=== PATIENT | female | born 1950 | race Caucasian/White ===

== ENCOUNTER 2016-06-11 17:45 | Emergency (ER) | payer BC ==
[~2016-06-11] VITALS: Ht 160 cm; Wt 55.7 kg
[2016-06-11 17:49] VITALS: TEMP 36.5; Ht 160 cm; Wt 55.7 kg
[2016-06-11] MEDS ORDERED: CYAN10005 PO (18:04)
[2016-06-11] MEDS ORDERED: VITACAP37 PO (18:05)
[2016-06-11] MEDS ORDERED: CHOL1000 PO (18:06)
[2016-06-11] MEDS ORDERED: ZINC100T2 PO (18:08)
[2016-06-11] MEDS ORDERED: BIOF500T PO (18:09)
[2016-06-11] MEDS ORDERED: [UNRECOGNIZED DRUG - CODE] PO (18:10)
[2016-06-11] MEDS ORDERED: GARL1CAP6 PO (18:11)
[2016-06-11] MEDS ORDERED: MULT-188 PO (18:12)
[2016-06-11] MEDS ORDERED: BROM100T PO (18:13)
[2016-06-11] MEDS ORDERED: ASPI81TA28 PO (18:14)
[2016-06-11] MEDS ORDERED: OMEG10007 PO (18:15)
[2016-06-11] MEDS ORDERED: CALC500C70 PO (18:16)
[2016-06-11] MEDS ORDERED: MAGN250T8 PO (18:17)
--- NOTE | 2016-06-11 18:22 | DIAGNOSTIC IMAGING REPORT ---
RIGHT WRIST 5 VIEWS HISTORY: Right wrist pain after fall. COMPARISON: None. FINDINGS: The bones are osteopenic. Soft tissue swelling within the right wrist. There is a slightly comminuted and impacted distal right radius fracture which demonstrates dorsal angulation. The fracture demonstrates intra-articular extension. No radiopaque foreign bodies. IMPRESSION: Slightly comminuted and impacted distal right radius fracture which demonstrates dorsal angulation. Electronically signed by: Jorge Doran M.D. 06/11/2016 6:20 PM
--- NOTE | 2016-06-11 18:54 | EMERGENCY ROOM VISIT NOTE ---
ED Visit Note First contact with patient: 17:54 Chief Complaint: RIGHT Wrist Pain/Injury History of Present Illness: Patient is a 65-year-old female who presents to the emergency Department this evening for evaluation of her RIGHT wrist pain/ injury. She reports that she slipped on a wet surface this afternoon and landed on her outstretched RIGHT hand. She reports immediate pain and deformity to the RIGHT wrist. She has applied ice to the area. She is utilizing sdaw-faf-[id number] medications to this point. She rates her discomfort a 0/10. The patient denies any previous history of fracture or injury to the affected wrist. She denies any numbness or tingling into the distal cavity. The patient denies any associated finger pain, hand pain, forearm pain, or elbow pain. Medications: No current medications. Allergies: No known allergies. PMH: No pertinent past medical history. SHx: Patient is a 65-year-old female who lives locally. ROS: All pertinent positive and negative review of systems are appropriately documented in the History of Present Illness. Physical Exam: VITAL SIGNS - Vital signs and nursing notes were reviewed. GENERAL - 65-year-old female appearing her stated age and in noticeable discomfort throughout the exam. MUSCULOSKELETAL - Active ROM of the RIGHT wrist was limited in all directions. Moderate edema noted overlying the distal radius. No palpable deformities. Moderate tenderness over the radial styloid process. Mild tenderness with squeezing the forearm. No tenderness extending into the carpals. No point- tenderness over the anatomic snuffbox. Moderate pain elicited with supination and pronation of the forearm. NEUROLOGIC - SENSORY: Spinothalamic tract was found to be intact with ability to discriminate sharp versus dull sensation at the level of the RIGHT elbow down to the fingertips. No sensory deficits of the dorsal column were appreciated utilizing light touch for evaluation. VASCULAR - Capillary refill was brisk. +3/5 radial pulse palpated. IMAGING: RIGHT WRIST 5 VIEWS HISTORY: Right wrist pain after fall. COMPARISON: None. FINDINGS: The bones are osteopenic. Soft tissue swelling within the right wrist. There is a slightly comminuted and impacted distal right radius fracture which demonstrates dorsal angulation. The fracture demonstrates intra-articular extension. No radiopaque foreign bodies. IMPRESSION: Slightly comminuted and impacted distal right radius fracture which demonstrates dorsal angulation. ED Course: Patient was seen and evaluated by myself. Patient was provided an ice pack for comfort. Patient decline anything for their complaint of pain. X-rays were obtained of the affected wrist. Imaging results as above. Images were discussed and reviewed with the patient who acknowledges understanding. Was placed in an Ortho-Glass splint for comfort. She was provided an arm sling for comfort as well. Splint was applied by the emergency department artificial breeding technician under my direct supervision. The patient remained neurovascularly intact pre-and post- splint to. The patient was educated on the need for close follow-up with orthopedic surgery for definitive management. The patient was educated on worrisome symptoms for return visit to the emergency department. Patient discharged home in good condition. In the evaluation and treatment of this patient, the following differential diagnoses were considered: Wrist Sprain, Wrist Fracture, Wrist Dislocation, Scapholunate Dissociation, Carpal Fracture, Metacarpal Fracture, Radial Styloid Process Fracture, Ulnar Styloid Process Fracture, or Carpal Tunnel Syndrome. Impression: RIGHT Distal Radius Fracture, Fall Discharge Instructions: You have been treated in the Emergency Department for your RIGHT Distal Radius Fracture. For pain control, you can use the following wugx-uyy-vvmvlzf medicines (if >12 yo): - Regular strength (325mg/tab) Tylenol (acetaminophen) 2 tabs every 4-6 hours as needed. Do not exceed 12 tablets in a 24 hour period. Avoid taking more than 4 grams (4000 mg) of Tylenol per day. This includes any other sources of acetaminophen you may take on a regular basis. - Regular strength (200 mg/tab) Advil (ibuprofen) 1-2 tabs every 4-6 hours as needed. Do not exceed a dose of 3200 mg per day. If this is a recent injury (<24 hrs), ice can be applied to the area of pain for the first 3 days to help decrease pain and inflammation. You have been provided the number for an Orthopaedic Surgeon. You should call this number as soon as possible to establish a follow-up visit from today's Emergency Department visit. Keep the brace in place until evaluated by Orthopedics. Return to the Emergency Department if your current symptoms worsen despite treatment course outlined above, or if you develop any of the following symptoms : intractable pain despite aforementioned treatment course or new onset of numbness or tingling of the fingers. Current/Historical Medications Scheduled Aspirin (Aspirin Ec), 81 MG PO DAILY Bioflavonoid Products (Natalie-C), 1 TAB PO DAILY Bromelains (Bromelain), 1 TAB PO DAILY Calcium/Vitamin D (Os-Tate 500 Plus D), 3 TAB PO DAILY Cholecalciferol (Vitamin D3), 5,000 PO DAILY Cyanocobalamin (Vitamin B-12), 5,000 MCG PO DAILY Feverfew (Tanacetum Parthenium (Feverfew), 380 MG PO DAILY Fish Oil ([place]-3), 2 CAP PO DAILY Garlic (Garlic), Unknown Dose PO DAILY Magnesium Oxide (Mg Supplement (Magnesium), 250 MG PO DAILY Multiple Vitamins W/ Minerals (Ocuvite), 1 TABS PO DAILY Vitamin E (E-400), 400 UNITS PO DAILY Zinc (Zinc), 100 MG PO DAILY Allergies Coded Allergies: No Known Allergies (Unverified , 06/11/16) Vital Signs Date Time Temp Pulse Resp B/P Pulse Ox O2 Delivery O2 Flow Rate FiO2 06/11/16 19:04 79 16 158/80 99 Room Air 06/11/16 17:49 36.5 66 17 149/70 99 Room Air Departure Information Impression Primary Impression: Distal radial fracture Additional Impression: Fall Dispostion Home / Self-Care Condition GOOD Referrals No Doctor, Assigned (PCP) Keegan Leahy D.O. Patient Instructions A Signature Page, My [facility] [employer] Additional Instructions You have been treated in the Emergency Department for your RIGHT Distal Radius Fracture. For pain control, you can use the following zijm-cdz-cahyjrt medicines (if >12 yo): - Regular strength (325mg/tab) Tylenol (acetaminophen) 2 tabs every 4-6 hours as needed. Do not exceed 12 tablets in a 24 hour period. Avoid taking more than 4 grams (4000 mg) of Tylenol per day. This includes any other sources of acetaminophen you may take on a regular basis. - Regular strength (200 mg/tab) Advil (ibuprofen) 1-2 tabs every 4-6 hours as needed. Do not exceed a dose of 3200 mg per day. If this is a recent injury (<24 hrs), ice can be applied to the area of pain for the first 3 days to help decrease pain and inflammation. You have been provided the number for an Orthopaedic Surgeon. You should call this number as soon as possible to establish a follow-up visit from today's Emergency Department visit. Keep the brace in place until evaluated by Orthopedics. Return to the Emergency Department if your current symptoms worsen despite treatment course outlined above, or if you develop any of the following symptoms : intractable pain despite aforementioned treatment course or new onset of numbness or tingling of the fingers.
[2016-06-11 19:04] VITALS: BP 158/80; PULSE 79; O2SAT 99
== END 2016-06-11 19:06 | disposition home or self-care (01) ==
LOC: C.EDB 17:47 → C.EDD 19:06
DX: S52.591A Other fractures of lower end of right radius, initial encounter for closed fracture (principal); W01.0XXA Fall on same level from slipping, tripping and stumbling without subsequent striking against object, initial encounter; Z79.82 Long term (current) use of aspirin

== ENCOUNTER → 2017-05-20 | Outpatient (CLI) | payer BC ==
[~2017-05-20] MED LIST: ASPI81TA28 PO; BIOF500T PO; BROM100T PO; CALC500C70 PO; CHOL1000 PO; CYAN10005 PO; GARL1CAP6 PO; MAGN250T8 PO; MULT-188 PO; OMEG10007 PO; VITACAP37 PO; ZINC100T2 PO; [UNRECOGNIZED DRUG - CODE] PO
[2017-05-20 18:06] LABS: BLOOD UREA NITROGEN 33 mg/dl (7-18); BUN/CREATININE RATIO 48.7 (10-20); CALCIUM 9.1 mg/dl (8.5-10.1); CARBON DIOXIDE 26 mmol/L (21-32); CHLORIDE 102 mmol/L (98-107); CREATININE 0.67 mg/dl (0.60-1.20); GLUCOSE 72 mg/dl (70-99); POTASSIUM 3.7 mmol/L (3.5-5.1); SODIUM 136 mmol/L (136-145)
== END | disposition home or self-care (01) ==
LOC: C.LABPBG 14:55
PROVIDERS: ATTEND Family Medicine
DX: M81.0 Age-related osteoporosis without current pathological fracture (principal); Z11.59 Encounter for screening for other viral diseases